=== PATIENT | male | born 1995 | race Asian ===

== ENCOUNTER 2024-04-26 14:45 | Emergency (ER) | payer OTHER ==
[~2024-04-26] VITALS: Ht 172.7 cm; Wt 73.0 kg
[2024-04-26 15:14] VITALS: BP 115/78; TEMP 98.4
[2024-04-26] MEDS ORDERED: LIDOCAINE 0.5%-EPI 1:200,000 50 ML VIAL ONE (16:32)
[2024-04-26 16:57] VITALS: O2SAT 98
[2024-04-26] MEDS ORDERED: SULF1TAB48 PO (17:02)
== END 2024-04-26 17:01 | disposition home or self-care (01) ==
LOC: ER 14:48
DX: L02.31 Cutaneous abscess of buttock (principal)
CPT/HCPCS: 99283; 10060; J3490; A6403; A6407 ×2